=== PATIENT | male | born 1995 | race African-American/Black ===

== ENCOUNTER 2018-08-16 15:00 | Emergency (ER) | payer MEDICAID ==
[~2018-08-16] VITALS: Ht 177.8 cm; Wt 88.0 kg
[2018-08-16] MEDS ORDERED: BACITRACIN ZINC OINT UDPKT TOP ONE (16:45)
[2018-08-16] MEDS ORDERED: LIDOCAINE HCL/PF 1% 10 MG/ML 5ML VIAL IJ ONE (16:45)
[2018-08-16] MEDS ORDERED: IBUPROFEN 600MG TABLET PO ONE (16:45)
[2018-08-16] MEDS ORDERED: TETANUS, DIPHTHERIA, PERTUSSIS VAC/PF 0.5ML (>7YR OLD) IM ONE (16:45)
[2018-08-16 17:15] VITALS: BP 116/74
[2018-08-16] MEDS ORDERED: HYDROCODONE/ACETAMINOPHEN 5/325MG TABLET PO ONE (17:15)
== END 2018-08-16 18:59 | disposition home or self-care (01) ==
LOC: ER 15:00
DX: S61.215A Laceration without foreign body of left ring finger without damage to nail, initial encounter (principal); S60.222A Contusion of left hand, initial encounter; W22.8XXA Striking against or struck by other objects, initial encounter; Y93.89 Activity, other specified; Y92.018 Other place in single-family (private) house as the place of occurrence of the external cause
CPT/HCPCS: 12002; 73130; 90471; 90715; 99283; J3490

== ENCOUNTER 2018-09-05 06:25 | Emergency (ER) | payer MEDICAID ==
[~2018-09-05] VITALS: Ht 177.8 cm; Wt 86.0 kg
[2018-09-05 07:04] VITALS: BP 118/60
== END 2018-09-05 07:14 | disposition home or self-care (01) ==
LOC: ER 06:25
DX: S61.215D Laceration without foreign body of left ring finger without damage to nail, subsequent encounter (principal); F17.200 Nicotine dependence, unspecified, uncomplicated; X58.XXXD Exposure to other specified factors, subsequent encounter
CPT/HCPCS: 99281; Z7610

== ENCOUNTER 2023-08-16 10:01 | Emergency (ER) | payer MEDICAID ==
[~2023-08-16] VITALS: Ht 177.8 cm; Wt 100.0 kg
[2023-08-16 10:30] VITALS: O2SAT 100
[2023-08-16 14:11] VITALS: BP 119/80; PULSE 99; RESP 18; TEMP 98.6
== END 2023-08-16 14:12 | disposition home or self-care (01) ==
LOC: ER 10:01
DX: R60.9 Edema, unspecified (principal)
CPT/HCPCS: 73600; 73620; 93970; 99284